=== PATIENT | male | born 1945 | race Caucasian/White ===

== ENCOUNTER 2016-12-01 20:31 | Emergency (ER) | payer OTHER, MEDICARE ==
[~2016-12-01] VITALS: Ht 167.6 cm; Wt 90.9 kg
[~2016-12-01 20:31] MED LIST: ADVIL200 MG PO; ASPIRIN E.C. 8181 MG PO; AZULFIDINE500 MG/TAB; CELEXA 20MG20 MG/TAB PO; ENBREL50 MG/ML SC; FLOMAX 0.40.4 MG/CAP PO; FOLIC ACID 11 MG/TA1 PO; IBUPROFEN 200200 MG PO; LORTAB 7.5/5001 TAB PO; METHOTREXA2.5 MG/TAB PO; MILLIPRED DP5 MG PO; MIRAPEX 1MG; MULTI VITAMINS1 TAB PO; MVI; OMEGA-3 FISH1000 MG PO; OPCON-A 0.027%-15 M1 OP; OSCAL 500MG/VI500 MG PO; PHENERGAN 25 TA25 MG PO; PREDNISONE20 MG PO; PROSCAR 5MG5 MG PO; REFRESH TEARS 115 ML OP; SYSTANE BALANCE10 M1 OP; TERAZOSIN; ZYLOPRIM 300MG300 MG PO
[2016-12-01 20:35] VITALS: TEMP 98
[2016-12-01] MEDS ORDERED: REMICADE V100 MG/VIA IV (21:00)
[2016-12-01 21:47] LABS: BASO % 0.1 % (0.0-2.0); EOS % 0.1 % (0-4.0); GRAN # 11.2 (1.4-6.5); GRAN % 83.1 % (42.2-75.2); HEMOGLOBIN 12.3 g/dl (13.5-18.0); LYMPH # 1.1 (1.2-3.4); LYMPH % 7.8 % (20.0-51.0); MEAN CELL VOLUME 94 fl (80.0-100.0); MEAN CORPUSCULAR HEMOGLOBIN 32 pg (27.0-31.0); MEAN CORPUSCULAR HGB CONC 34 g/dl (33.0-37.0); MEAN PLATELET VOLUME 9.7 fl (7.4-10.4); MONO # 1.1 (0.1-0.6); MONO % 8.3 % (1.7-9.3); PLATELET COUNT 182 K/mm3 (130-400); RED BLOOD COUNT 3.84 M/mm3 (4.20-5.60); REDCELL DISTRIBUTION WIDTH-CV 13.9 % (11.5-14.5); WHITE BLOOD COUNT 13.5 K/mm3 (4.8-10.8)
[2016-12-01 21:54] LABS: HEMATOCRIT 35.9 % (42.0-52.0)
[2016-12-01 22:09] LABS: C-REACTIVE PROTEIN 8.8 mg/dL (0.0-0.9); CALCIUM 9.5 mg/dL (8.4-10.2); CREATININE, serum 0.82 mg/dL (0.66-1.25); POTASSIUM 4.1 mmol/L (3.4-5.0)
[2016-12-01] MEDS ORDERED: PERCOCET 325 MG1 TA3 PO (22:33)
[2016-12-01 23:33] VITALS: BP 144/96; PULSE 63
== END 2016-12-01 23:35 | disposition home or self-care (01) ==
LOC: COL.ER 20:31
PROVIDERS: Emergency Medicine
DX: M06.872 Other specified rheumatoid arthritis, left ankle and foot (principal)
CPT/HCPCS: J1170; J1885; J2930; J7040

== ENCOUNTER 2016-12-07 16:06 | Emergency (ER) | payer OTHER, MEDICARE ==
[~2016-12-07] VITALS: Ht 167.6 cm; Wt 90.9 kg
[~2016-12-07 16:06] MED LIST changes: +PERCOCET 325 MG1 TA3 PO; +REMICADE V100 MG/VIA IV
[2016-12-07 16:11] VITALS: BP 137/80
[2016-12-07 17:51] LABS: HEMOGLOBIN 12.5 g/dl (13.5-18.0); MEAN CELL VOLUME 92 fl (80.0-100.0); MEAN CORPUSCULAR HEMOGLOBIN 31 pg (27.0-31.0); MEAN CORPUSCULAR HGB CONC 34 g/dl (33.0-37.0); MEAN PLATELET VOLUME 9.5 fl (7.4-10.4); PLATELET COUNT 216 K/mm3 (130-400); RED BLOOD COUNT 3.98 M/mm3 (4.20-5.60); REDCELL DISTRIBUTION WIDTH-CV 13.3 % (11.5-14.5); WHITE BLOOD COUNT 17.6 K/mm3 (4.8-10.8)
[2016-12-07 17:55] LABS: ADD PATHOLOGY DIFF REVIEW NO; HEMATOCRIT 36.4 % (42.0-52.0)
[2016-12-07 18:11] LABS: ADJUSTED CALCIUM 9.7 mg/dL (8.4-10.2); ALBUMIN 4.1 gm/dL (3.5-5.0); BILIRUBIN,TOTAL 0.9 mg/dL (0.0-1.0); C-REACTIVE PROTEIN 3.1 mg/dL (0.0-0.9); CALCIUM 9.8 mg/dL (8.4-10.2); CREATININE, serum 0.85 mg/dL (0.66-1.25); POTASSIUM 4.2 mmol/L (3.4-5.0); TOTAL PROTEIN 7.6 gm/dL (6.4-8.2)
[2016-12-07 18:13] LABS: BAND 5 % (0-10); NEUTROPHILS 77 % (42.0-75.2); TOTAL CELLS COUNTED 100
[2016-12-07 18:35] LABS: ERYTHROCYTE SEDIMENTATION RATE 26 mm/hr (0-30)
[2016-12-07] MEDS ORDERED: PERCOCET 325 MG1 TAB PO (19:02)
[2016-12-07 20:19] VITALS: PULSE 72; TEMP 100
== END 2016-12-07 20:20 | disposition home or self-care (01) ==
LOC: COL.ER 16:06
PROVIDERS: Physician Assistant
DX: M06.9 Rheumatoid arthritis, unspecified (principal)
CPT/HCPCS: J1170; J2930; J7030

== ENCOUNTER → 2018-05-19 | Outpatient (CLI) | payer MEDICARE, BC ==
[~2018-05-19] MED LIST changes: +PERCOCET 325 MG1 TAB PO
== END ==
LOC: COL.VAS 12:08
DX: M79.662 Pain in left lower leg (principal); M79.605 Pain in left leg

== ENCOUNTER 2018-06-20 15:55 | Emergency (ER) | payer MEDICARE, BC ==
[~2018-06-20] VITALS: Ht 167.6 cm; Wt 93.2 kg
[2018-06-20 16:04] VITALS: TEMP 99
[2018-06-20 17:20] VITALS: BP 134/81; PULSE 72
== END 2018-06-20 17:20 | disposition home or self-care (01) ==
LOC: COL.ER 15:55
DX: S01.81XA Laceration without foreign body of other part of head, initial encounter (principal); Z98.890 Other specified postprocedural states; Z79.82 Long term (current) use of aspirin; W26.8XXA Contact with other sharp object(s), not elsewhere classified, initial encounter; Y92.009 Unspecified place in unspecified non-institutional (private) residence as the place of occurrence of the external cause

== ENCOUNTER 2018-06-25 04:56 | Emergency (ER) | payer MEDICARE, BC ==
[~2018-06-25] VITALS: Ht 167.6 cm; Wt 93.2 kg
[2018-06-25 05:00] VITALS: TEMP 98.1
[2018-06-25] MEDS ORDERED: FISH OIL 1000MG1 CAP PO (05:10)
[2018-06-25] MEDS ORDERED: NORCO 325 MG-7.1 TAB PO (05:11)
[2018-06-25] MEDS ORDERED: CALCIUM CARBON650 M2 PO (05:14)
[2018-06-25] MEDS ORDERED: PREDNISONE 5MG5 MG PO (05:15)
[2018-06-25] MEDS ORDERED: PREDNISONE1 MG PO (05:15)
[2018-06-25] MEDS ORDERED: MILLIPRED5 MG PO (05:18)
[2018-06-25 05:24] LABS: BASO % 0.1 % (0.0-2.0); EOS % 0.2 % (0-4.0); GRAN # 13.6 (1.4-6.5); GRAN % 81.2 % (42.2-75.2); HEMATOCRIT 36.7 % (42.0-52.0); HEMOGLOBIN 12.9 g/dl (13.5-18.0); LYMPH # 1.5 (1.2-3.4); MEAN CELL VOLUME 94 fl (80.0-100.0); MEAN CORPUSCULAR HEMOGLOBIN 33 pg (27.0-31.0); MEAN CORPUSCULAR HGB CONC 35 g/dl (33.0-37.0); MEAN PLATELET VOLUME 9.5 fl (7.4-10.4); MONO # 1.5 (0.1-0.6); MONO % 8.8 % (1.7-9.3); PLATELET COUNT 238 K/mm3 (130-400); RED BLOOD COUNT 3.91 M/mm3 (4.20-5.60); REDCELL DISTRIBUTION WIDTH-CV 12.6 % (11.5-14.5)
[2018-06-25 05:33] LABS: BILIRUBIN,TOTAL 0.4 mg/dL (0.0-1.0); CALCIUM 9.5 mg/dL (8.4-10.2); CREATININE, serum 1.14 mg/dL (0.66-1.25); POTASSIUM 3.9 mmol/L (3.4-5.0); TOTAL PROTEIN 7.3 gm/dL (6.4-8.2)
[2018-06-25] MEDS ORDERED: THERATEARS 0.60.6 ML OU (05:44)
[2018-06-25] MEDS ORDERED: XELJANZ XR11 MG PO (05:46)
[2018-06-25 07:50] VITALS: BP 120/87; PULSE 68
== END 2018-06-25 07:52 | disposition home or self-care (01) ==
LOC: COL.ER 04:56
PROVIDERS: Emergency Medicine
DX: M06.9 Rheumatoid arthritis, unspecified (principal); E78.5 Hyperlipidemia, unspecified; N40.0 Benign prostatic hyperplasia without lower urinary tract symptoms; Z98.890 Other specified postprocedural states
CPT/HCPCS: J1170; J1885; J2930; J7040

== ENCOUNTER 2018-06-26 08:25 | Emergency (ER) | payer MEDICARE, BC ==
[~2018-06-26 08:25] MED LIST changes: +CALCIUM CARBON650 M2 PO; +FISH OIL 1000MG1 CAP PO; +MILLIPRED5 MG PO; +NORCO 325 MG-7.1 TAB PO; +PREDNISONE 5MG5 MG PO; +PREDNISONE1 MG PO; +THERATEARS 0.60.6 ML OU; +XELJANZ XR11 MG PO
[2018-06-26 08:33] VITALS: BP 146/69; PULSE 70; TEMP 98
== END 2018-06-26 08:41 | disposition home or self-care (01) ==
LOC: COL.ER 08:25
DX: S01.111D Laceration without foreign body of right eyelid and periocular area, subsequent encounter (principal); X58.XXXD Exposure to other specified factors, subsequent encounter

== ENCOUNTER 2018-06-28 02:18 | Emergency (ER) | payer MEDICARE, BC ==
[~2018-06-28] VITALS: Ht 167.6 cm; Wt 93.2 kg
[2018-06-28 02:21] VITALS: BP 162/82; TEMP 98.8
[2018-06-28] MEDS ORDERED: PREDNISONE20 MG PO (04:02)
[2018-06-28 04:37] VITALS: PULSE 90
== END 2018-06-28 04:38 | disposition home or self-care (01) ==
LOC: COL.ER 02:18
DX: M79.605 Pain in left leg (principal); M06.9 Rheumatoid arthritis, unspecified; Z79.82 Long term (current) use of aspirin
CPT/HCPCS: J1170; J2930; J3010; J7040